=== PATIENT | female | born 1945 | race Caucasian/White ===

== ENCOUNTER 2018-01-01 10:44 | Outpatient (CLI) | payer MEDICARE, OTHER ==
--- NOTE | 2018-01-01 11:57 | RAD ---
LEFT WRIST THREE VIEWS: Indication: Fall with injury, pain. FINDINGS: There is subtle cortical irregularity of the distal radius involving the articular surface. There is soft tissue prominence. 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 IMPRESSION: Subtle cortical irregularity of the distal radius, involving the articular surface, which may relate to a nondisplaced fracture. Correlate clinically. As necessary, this could be further assessed with n oncontrast left wrist CT. POS: [facility]
== END 2018-01-01 10:45 | disposition home or self-care (01) ==
LOC: BICRAD 10:44
PROVIDERS: ATTEND Family Medicine
DX: M25.532 Pain in left wrist (principal)

== ENCOUNTER 2018-01-02 11:16 | Outpatient (CLI) | payer MEDICARE, OTHER ==
--- NOTE | 2018-01-02 13:41 | RAD ---
RIGHT GREAT TOE 3 VIEWS: HISTORY: A 72-year-old female with a history of first tarsal pain, following an injury, with swelling and brui sing. FINDINGS: Essentially nondisplaced, somewhat oblique fracture through the distal phalanx of the great toe, whic h appears to extend into the interphalangeal joint. Arthrosis changes of the first metatarsophalange al joint. IMPRESSION: Nondisplaced oblique fracture, distal phalanx, great toe. POS: [facility]
== END 2018-01-02 11:17 | disposition home or self-care (01) ==
LOC: BICRAD 11:16
PROVIDERS: ATTEND Physician Assistant Medical
DX: S90.112A Contusion of left great toe without damage to nail, initial encounter (principal); M79.675 Pain in left toe(s); S92.425A Nondisplaced fracture of distal phalanx of left great toe, initial encounter for closed fracture

== ENCOUNTER 2018-01-15 14:38 | Outpatient (CLI) | payer MEDICARE, OTHER ==
--- NOTE | 2018-01-15 17:35 | RAD ---
2 VIEWS LEFT FOREARM: Date: 01/15/18 HISTORY: Unspecified fracture left radius. Patient fell with outstretched hand. FINDINGS: AP and lateral views of left forearm obtained. Two views of the left forearm demonstrate no evidence of left forearm fractures, subluxations, or bony lesions. IMPRESSION: Normal 2 views left forearm. POS: [facility]
== END 2018-01-15 14:39 | disposition home or self-care (01) ==
LOC: BICRAD 14:38
PROVIDERS: ATTEND Physician Assistant Medical
DX: S52.502D Unspecified fracture of the lower end of left radius, subsequent encounter for closed fracture with routine healing (principal)